=== PATIENT | male | born 1955 | race Caucasian/White ===

== ENCOUNTER 2018-12-30 22:33 | Emergency (ER) | payer OTHER ==
[~2018-12-30] VITALS: Ht 175.3 cm; Wt 93.4 kg
[~2018-12-30 22:33] MED LIST: ASPI81TA5 PO; ATOR40TA GT; BUPR150T12 PO; CLOP75TA15 PO; METF-440 PO; METO25TA6 PO
--- NOTE | 2018-12-30 23:30 | NUR ---
PT BIBSELF C/O L LEG SWELLING AND PAIN X 4 HRS. PT AND ARE CONCERNED BECAUSE PT HAS HX OF DIABETES. PT AXO4. RESPIRATIONS EVEN AND UNLABORED. PT PUT ON THE [facility] AND PULSE OX. PENDING EVAL FROM ER .
--- NOTE | 2018-12-30 23:58 | NUR ---
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 LABS DRAWN FROM 20G RAC. SENT TO LAB.
[2018-12-31] MEDS ORDERED: MORPHINE SULFATE INJ 2 MG/ML DISP.SYRIN IV ONE
[2018-12-31] MEDS ORDERED: CEFEPIME 1 GM in IV D5W 50 ML IV ONE ×2
[2018-12-31] MEDS ORDERED: MORPHINE SULFATE INJ 4 MG/ML DISP.SYRIN ONE (00:08)
[2018-12-31] MEDS ORDERED: CEFEPIME 1 GM VIAL ONE (00:08)
[2018-12-31] MEDS ORDERED: MORPHINE SULFATE INJ 2 MG/ML DISP.SYRIN ONE (00:08)
[2018-12-31 00:11] LABS: BASOPHILS # (AUTO) 0.1 /CMM (0.0-0.2); BASOPHILS % (AUTO) 0.5 % (0.0-2.0); EOSINOPHILS % (AUTO) 1.5 % (0.0-6.0); HEMATOCRIT 44 % (39-51); LYMPHOCYTES # (AUTO) 1.7 /CMM (0.8-4.8); LYMPHOCYTES % (AUTO) 11.8 % (20.0-44.0); MEAN CORPUSCULAR HGB CONC 34 g/dl (31.0-36.0); MEAN CORPUSCULAR VOLUME 94 fL (80-96); MONOCYTES # (AUTO) 1.1 /CMM (0.1-1.30); MONOCYTES % (AUTO) 8.1 % (2.0-12.0); NEUTROPHILS % (AUTO) 78.1 % (43.0-81.0); PLATELET COUNT (AUTO) 264 /CMM (150-450)
--- NOTE | 2018-12-31 00:15 | NUR ---
XRAY AT BEDSIDE.
[2018-12-31 00:21] LABS: CALCIUM, SERUM 8.8 mg/dL (8.5-10.1); CREATININE 1.1 mg/dL (0.6-1.3); POTASSIUM 4.3 mmol/L (3.5-5.1)
--- NOTE | 2018-12-31 01:41 | NUR ---
Patient discharged to home in stable condition. Written and verbal after care instructions given. Patient verbalizes understanding of instruction. IV removed. Catheter intact and site benign. Pressure and 4x4 applied to site. No bleeding noted.
[2018-12-31 01:42] VITALS: BP 101/56
== END 2018-12-31 01:43 | disposition home or self-care (01) ==
LOC: ER 22:38
DX: L03.116 Cellulitis of left lower limb (principal); E11.9 Type 2 diabetes mellitus without complications; I11.9 Hypertensive heart disease without heart failure; I25.2 Old myocardial infarction; Z95.5 Presence of coronary angioplasty implant and graft; Z79.82 Long term (current) use of aspirin
CPT/HCPCS: 36415; 73610; 80048; 83605; 84145; 85025; 87040 ×2; 96365; 96375; 99284; J0692 ×2; J2270 ×2; J7060 ×2